=== PATIENT | male | born 1940 | race Caucasian/White ===

== ENCOUNTER → 2016-04-30 | Outpatient (CLI) | payer BC ==
[~2016-04-30] MED LIST: ASPIRIN 32325 MG/TAB PO; ASPIRIN 81M81 MG/TA2 PO; BRILINTA90 MG PO; CADUET 10 MG-801 TAB PO; GLUCOPHAGE500 MG/TAB PO; METFORMIN500 MG PO; NITROSTAT0.6 MG SL; TOPROL XL 25MG25 MG PO; URICALM PO; VOGELXO TOP
== END ==
LOC: COL.RAD 11:21
DX: R22.1 Localized swelling, mass and lump, neck (principal)

== ENCOUNTER 2016-12-04 13:13 | Day surgery (SDC) | payer BC ==
[~2016-12-04] VITALS: Ht 177.8 cm; Wt 103.8 kg
[2016-12-04 14:02] VITALS: BP 147/83; PULSE 62; TEMP 97.6
[2016-12-04] MEDS ORDERED: ASPIRIN 81M81 MG/TA2 PO (14:43)
[2016-12-04] MEDS ORDERED: TOPROL XL 25MG25 MG PO (14:44)
[2016-12-04] MEDS ORDERED: GLUCOPHAGE500 MG/TAB PO (14:45)
[2016-12-04] MEDS ORDERED: CADUET 10 MG-801 TAB PO (14:45)
[2016-12-04] MEDS ORDERED: PLAVIX 75MG TAB75 MG PO (14:47)
[2016-12-04] MEDS ORDERED: NITROSTAT0.6 MG SL (14:48)
[2016-12-04 16:05] VITALS: TEMP 98.2
[2016-12-04 16:15] VITALS: BP 129/75; PULSE 51
[2016-12-04 16:30] VITALS: BP 150/90; PULSE 47
[2016-12-04 16:45] VITALS: BP 151/88; PULSE 52
[2016-12-04 17:00] VITALS: BP 132/86; PULSE 52
== END 2016-12-04 17:33 | disposition home or self-care (01) ==
LOC: SDCO 13:13
DX: N21.0 Calculus in bladder (principal); F32.9 Major depressive disorder, single episode, unspecified; N40.1 Benign prostatic hyperplasia with lower urinary tract symptoms; I25.10 Atherosclerotic heart disease of native coronary artery without angina pectoris; K21.9 Gastro-esophageal reflux disease without esophagitis; E78.00 Pure hypercholesterolemia, unspecified; Z95.818 Presence of other cardiac implants and grafts; Z95.5 Presence of coronary angioplasty implant and graft; Z79.84 Long term (current) use of oral hypoglycemic drugs; Z82.49 Family history of ischemic heart disease and other diseases of the circulatory system
CPT/HCPCS: J0690; J2405; J2704; J3010; J7030

== ENCOUNTER 2017-04-19 16:54 | Inpatient (IN) | payer MEDICARE, BC ==
[~2017-04-19] VITALS: Ht 177.8 cm; Wt 102.5 kg
[~2017-04-19 16:54] MED LIST changes: +PLAVIX 75MG TAB75 MG PO
[2017-04-19] MEDS ORDERED: CADUET 10 MG-801 TAB PO (17:14)
[2017-04-19] MEDS ORDERED: NITROSTAT0.4 MG/TAB SL (17:19)
[2017-04-19 17:59] LABS: BASO % 0.4 % (0.0-2.0); EOS # 0.1 (0.0-0.7); EOS % 1.4 % (0-4.0); GRAN # 2.7 (1.4-6.5); GRAN % 54.9 % (42.2-75.2); HEMATOCRIT 42.4 % (42.0-52.0); LYMPH # 1.8 (1.2-3.4); LYMPH % 35.5 % (20.0-51.0); MEAN CELL VOLUME 87 fl (80.0-100.0); MEAN CORPUSCULAR HEMOGLOBIN 29 pg (27.0-31.0); MEAN CORPUSCULAR HGB CONC 33 g/dl (33.0-37.0); MEAN PLATELET VOLUME 10.9 fl (7.4-10.4); MONO # 0.4 (0.1-0.6); MONO % 7.6 % (1.7-9.3); PLATELET COUNT 165 K/mm3 (130-400); RED BLOOD COUNT 4.88 M/mm3 (4.20-5.60); REDCELL DISTRIBUTION WIDTH-CV 13.1 % (11.5-14.5)
[2017-04-19 18:06] LABS: ALANINE AMINOTRANSFERASE 53 U/L (21-72); ALBUMIN 4.2 gm/dL (3.5-5.0); ALKALINE PHOSPHATASE 65 U/L (50-136); ANION GAP 11 mmol/L (7-16); AST,SGOT 29 U/L (15-37); BILIRUBIN,TOTAL 0.5 mg/dL (0.0-1.0); BLOOD UREA NITROGEN 19 mg/dL (9-20); CALCIUM 8.8 mg/dL (8.4-10.2); CARBON DIOXIDE 24 mmol/L (22-30); CHLORIDE 101 mmol/L (98-107); CREATININE, serum 0.84 mg/dL (0.66-1.25); GLUCOSE 364 mg/dL (74-106); POTASSIUM 3.9 mmol/L (3.4-5.0); SODIUM 136 mmol/L (137-145); TOTAL PROTEIN 7.4 gm/dL (6.4-8.2)
[2017-04-19 18:15] LABS: PROTHROMBIN TIME 11.9 SECONDS (9.7-12.8)
[2017-04-19 18:17] LABS: PARTIAL THROMBOPLASTIN TIME 29.1 SECONDS (26.0-37.0)
[2017-04-19 18:26] LABS: TROPONIN-I < 0.012 ng/mL (0.000-0.034)
[2017-04-19 23:39] VITALS: BP 159/86; PULSE 64; TEMP 98.1
[2017-04-20 01:33] VITALS: BP 159/87; PULSE 63; TEMP 97.9
[2017-04-20 04:54] VITALS: BP 149/88; PULSE 59; TEMP 97.9
[2017-04-20 07:02] LABS: BASO % 0.5 % (0.0-2.0); EOS # 0.1 (0.0-0.7); EOS % 1.3 % (0-4.0); GRAN # 3.2 (1.4-6.5); GRAN % 51.2 % (42.2-75.2); HEMATOCRIT 41.9 % (42.0-52.0); LYMPH # 2.4 (1.2-3.4); LYMPH % 38.4 % (20.0-51.0); MEAN CELL VOLUME 86 fl (80.0-100.0); MEAN CORPUSCULAR HEMOGLOBIN 29 pg (27.0-31.0); MEAN CORPUSCULAR HGB CONC 33 g/dl (33.0-37.0); MEAN PLATELET VOLUME 10.9 fl (7.4-10.4); MONO # 0.5 (0.1-0.6); MONO % 8.3 % (1.7-9.3); PLATELET COUNT 166 K/mm3 (130-400); RED BLOOD COUNT 4.88 M/mm3 (4.20-5.60); REDCELL DISTRIBUTION WIDTH-CV 13.3 % (11.5-14.5)
[2017-04-20 07:17] LABS: CALCIUM 8.6 mg/dL (8.4-10.2); CHOLESTEROL RISK RATIO 4.3; CREATININE, serum 0.74 mg/dL (0.66-1.25); POTASSIUM 3.6 mmol/L (3.4-5.0)
[2017-04-20 10:22] VITALS: BP 136/79; PULSE 62; TEMP 97.5
[2017-04-20 14:43] VITALS: BP 138/78; PULSE 58; TEMP 97.4
[2017-04-20 17:22] VITALS: BP 145/82; PULSE 60; TEMP 98.3
[2017-04-20 21:51] VITALS: BP 141/92; PULSE 57; TEMP 98.2
[2017-04-21] VITALS (302 sets, daily range): BP systolic 115–156; BP diastolic 76–110; PULSE 58–79; TEMP 97.9–98.4; O2SAT 89–100
[2017-04-21 07:15] LABS: HEMATOCRIT 45.1 % (42.0-52.0); HEMOGLOBIN 15.2 g/dl (13.5-18.0); MEAN CELL VOLUME 86 fl (80.0-100.0); MEAN CORPUSCULAR HEMOGLOBIN 29 pg (27.0-31.0); MEAN CORPUSCULAR HGB CONC 34 g/dl (33.0-37.0); MEAN PLATELET VOLUME 11.1 fl (7.4-10.4); PLATELET COUNT 189 K/mm3 (130-400); RED BLOOD COUNT 5.23 M/mm3 (4.20-5.60); REDCELL DISTRIBUTION WIDTH-CV 13.2 % (11.5-14.5)
[2017-04-21 07:32] LABS: CREATININE, serum 0.77 mg/dL (0.66-1.25); POTASSIUM 3.5 mmol/L (3.4-5.0)
[2017-04-21 07:36] LABS: INR 1.1 (0.8-3.0); PROTHROMBIN TIME 12.5 SECONDS (9.7-12.8)
[2017-04-21 07:39] LABS: PARTIAL THROMBOPLASTIN TIME 31.2 SECONDS (26.0-37.0)
[2017-04-22] VITALS (299 sets, daily range): BP systolic 119–139; BP diastolic 66–80; PULSE 60–73; TEMP 90–98.8; O2SAT 69–96
[2017-04-22 03:56] LABS: BASO % 0.2 % (0.0-2.0); EOS # 0.1 (0.0-0.7); EOS % 0.6 % (0-4.0); GRAN # 5.4 (1.4-6.5); GRAN % 65.8 % (42.2-75.2); HEMATOCRIT 42.2 % (42.0-52.0); HEMOGLOBIN 14.2 g/dl (13.5-18.0); LYMPH # 2.1 (1.2-3.4); LYMPH % 24.9 % (20.0-51.0); MEAN CELL VOLUME 85 fl (80.0-100.0); MEAN CORPUSCULAR HEMOGLOBIN 29 pg (27.0-31.0); MEAN CORPUSCULAR HGB CONC 34 g/dl (33.0-37.0); MEAN PLATELET VOLUME 10.5 fl (7.4-10.4); MONO # 0.7 (0.1-0.6); MONO % 8.3 % (1.7-9.3); PLATELET COUNT 153 K/mm3 (130-400); RED BLOOD COUNT 4.95 M/mm3 (4.20-5.60); REDCELL DISTRIBUTION WIDTH-CV 13.2 % (11.5-14.5)
[2017-04-22 04:06] LABS: CALCIUM 8.8 mg/dL (8.4-10.2); CREATININE, serum 0.79 mg/dL (0.66-1.25); POTASSIUM 3.5 mmol/L (3.4-5.0)
[2017-04-22] MEDS ORDERED: PRINIVIL5 MG PO (09:24)
[2017-04-22] MEDS ORDERED: TOPROL XL 50MG50 MG PO (09:24)
[2017-04-22] MEDS ORDERED: GLUCOPHAGE500 MG/TAB PO (09:25)
== END 2017-04-22 11:45 | disposition home or self-care (01) | DRG 247 ==
LOC: COL.ER 16:54 → SURG 18:40 → ICU 04-21 11:18
PROVIDERS: Family Medicine; Internal Medicine Interventional Cardiology; Nurse Practitioner
PROC: B2111ZZ Fluoroscopy of Multiple Coronary Arteries using Low Osmolar Contrast (ICD-10-PCS; principal; 2017-04-21)
PROC: 027034Z Dilation of Coronary Artery, One Artery with Drug-eluting Intraluminal Device, Percutaneous Approach (ICD-10-PCS; 2017-04-21)
PROC: 02703ZZ Dilation of Coronary Artery, One Artery, Percutaneous Approach (ICD-10-PCS; 2017-04-21)
DX: I21.4 Non-ST elevation (NSTEMI) myocardial infarction (principal); I25.10 Atherosclerotic heart disease of native coronary artery without angina pectoris; I10 Essential (primary) hypertension; Z95.5 Presence of coronary angioplasty implant and graft; E11.9 Type 2 diabetes mellitus without complications
CPT/HCPCS: 99223-AI; 99231-AI; 99232-AI; 99239; C1760; C1769; C1874; C1887; C1894; G0378; J0461; J0583; J1650; J1815; J2250; J3010; J7030; Q9967

== ENCOUNTER 2020-12-26 15:57 | Inpatient (IN) | payer MEDICARE, BC ==
[~2020-12-26] VITALS: Ht 177.8 cm; Wt 94.5 kg
[2020-12-26] VITALS (74 sets, daily range): BP systolic 93–95; BP diastolic 41–65; PULSE 106–120; TEMP 95; O2SAT 91–100
[~2020-12-26 15:57] MED LIST changes: +NITROSTAT0.4 MG/TAB SL; +PRINIVIL5 MG PO; +TOPROL XL 50MG50 MG PO
[2020-12-26 16:44] LABS: BASO % 0.4 % (0.0-2.0); EOS # 0.1 K/mm3 (0.0-0.7); EOS % 1.2 % (0-4.0); GRAN # 3.3 K/mm3 (1.4-6.5); GRAN % 44.8 % (42.2-75.2); HEMATOCRIT 46.2 % (42.0-52.0); HEMOGLOBIN 15.2 g/dl (13.5-18.0); LYMPH # 3.3 K/mm3 (1.2-3.4); LYMPH % 44.7 % (20.0-51.0); MEAN CELL VOLUME 87 fl (80.0-100.0); MEAN CORPUSCULAR HEMOGLOBIN 29 pg (27.0-31.0); MEAN CORPUSCULAR HGB CONC 33 g/dl (33.0-37.0); MEAN PLATELET VOLUME 10.7 fl (7.4-10.4); MONO # 0.6 K/mm3 (0.1-0.6); MONO % 8.6 % (1.7-9.3); PLATELET COUNT 185 K/mm3 (130-400); REDCELL DISTRIBUTION WIDTH-CV 13.8 % (11.5-14.5)
[2020-12-26 16:59] LABS: ALBUMIN 4.2 gm/dL (3.4-4.8); BILIRUBIN,TOTAL 0.6 mg/dL (0.2-1.2); CALCIUM 9.6 mg/dL (8.4-10.2); CREATININE, serum 0.98 mg/dL (0.72-1.25); POTASSIUM 3.5 mmol/L (3.5-4.5); TOTAL PROTEIN 7.9 gm/dL (6.2-8.1)
[2020-12-26 17:34] LABS: TROPONIN-I 0.022 ng/mL (0.00-0.033)
--- NOTE | 2020-12-26 18:53 | NUR ---
PT INTUBATED PER ACLS PROTOCOL FOR CODE BLUE.
--- NOTE | 2020-12-26 19:22 | NUR ---
Patient transferred to bed in label maker and brought to unit. television producer, ICU nurse resident care manager rn, ER nurse, RT, label maker nurse, and this nurse assisted with bringing patient and patient equipment and IABP to unit. Patient arrived to unit at 1922. VSS. Vent settings were as followed; RR 20, peep 5, fiO2 100%. Versed gtt, dobutamine gtt, lidocaine gtt and dopamine gtt running upon arrival to unit. This RN received bedside report from label maker and CHILD CARE TEAM LEAD. This nurse completed admission assessment. Patient , June remained in ICU waiting room during assessment. This RN and JOSE Howard went and discussed plan of care and patient status with patient . After central line insertion patient brought to patient bedside. Medication reconcilliation completed. Admission info obtained from patient . was agreeable with plan of care for patient. All patient belongings sent home with .
[2020-12-26 19:56] LABS: CALCIUM 8.7 mg/dL (8.4-10.2); CREATININE, serum 1.52 mg/dL (0.72-1.25); POTASSIUM 3.1 mmol/L (3.5-4.5)
--- NOTE | 2020-12-26 20:30 | NUR ---
Versed gtt shut off to assess patients neurological status post code. This RN noted that around 2129 the patient was beginning to wake up and was able to follow commands such as hand grasp, moving feet back and forth and opening eyes. Patient appeared alert but calm and drowsy . Patient was tolerating vent and did not appear restless. JOSE Howard at bedside during sedation trial.
[2020-12-26 20:51] LABS: ARTERIAL BLD GAS O2 SATURATION 97.3 % (92-100); ARTERIAL BLD GAS TCO2 CT 17.6; ARTERIAL BLOOD GAS BASE EXCESS -10.3 (-2-2); ARTERIAL BLOOD GAS HCO3 16.4 meq/L (22-26); ARTERIAL BLOOD GAS PCO2 39.2 mmHg (35-45); ARTERIAL BLOOD GAS PO2 106.3 mmHg (80-100); ARTERIAL BLOOD GAS pH 7.24 (7.35-7.45)
--- NOTE | 2020-12-26 21:00 | NUR ---
JOSE Howard called and notified Dr. Zarate that patient was needing central line placed. Anesthesiologist arrived at bedside at 2099 and started a triple lumen central line insertion into right femoral and completed insertion at 2120. Site covered with chlorexidine prep pad and tegaderm. Minimal bleeding around site noted. Dressing is CDI. No hematomas noted. Blood return noted in all lines. Consent signed prior to procecedure by patients and head up operatorTonya.
--- NOTE | 2020-12-26 21:48 | NUR ---
Unable to assess suicide risk screening d/t patient being intubated and sedated.
--- NOTE | 2020-12-26 22:00 | NUR ---
This RN placed 16F OG. Patient tolerated procedure well. Verified placement through epigastric auscultation with lawn service manager, Tonya. No epigastric contents aspirated. OG placed at 58cm at lip.
[2020-12-26] MEDS ORDERED: ELIQUIS 2.5 PO (23:08)
[2020-12-27] VITALS (50 sets, daily range): BP systolic 101–105; BP diastolic 59–69; PULSE 111–113; TEMP 95.3; O2SAT 95–100
[2020-12-27] MEDS ORDERED: ELIQUIS 5MG PO (01:06)
[2020-12-27] MEDS ORDERED: SYNJARDY XR 121 EACH PO (01:07)
[2020-12-27] MEDS ORDERED: TOPROL XL100 MG PO (01:09)
[2020-12-27] MEDS ORDERED: ZESTRIL 20MG TA20 MG PO (01:11)
--- NOTE | 2020-12-27 01:50 | NUR ---
This RN and patient left facility via [facility] to transferring facility. Patient had versed gtt, dobutamine gtt, dopamine gtt and fentanyl gtt running. This RN continued to chart IABP strips as well as doing frequent IABP insertion site checks and distal pulse checks throughout transport.
--- NOTE | 2020-12-27 02:20 | NUR ---
This RN called report while en route to [facility] to [facility] and notified transport nurse, Ankush that patient was leaving facility and en route.
--- NOTE | 2020-12-27 07:55 | NUR ---
Fentanyl gtt initiated d/t patient becoming restless and trying to tug at lines while increasing versed at same time prior to transfer to [facility].
== END 2020-12-27 01:50 | disposition short-term general hospital (02) | DRG 270 ==
LOC: COL.ER 15:57 → ICU 18:58
PROVIDERS: Personal Emergency Response Attendant; Student in an Organized Health Care Education/Training Program; ADMIT Student in an Organized Health Care Education/Training Program
PROC: 027034Z Dilation of Coronary Artery, One Artery with Drug-eluting Intraluminal Device, Percutaneous Approach (ICD-10-PCS; principal; 2020-12-26)
PROC: 5A02210 Assistance with Cardiac Output using Balloon Pump, Continuous (ICD-10-PCS; 2020-12-26)
PROC: 4A023N7 Measurement of Cardiac Sampling and Pressure, Left Heart, Percutaneous Approach (ICD-10-PCS; 2020-12-26)
PROC: B2101ZZ Fluoroscopy of Single Coronary Artery using Low Osmolar Contrast (ICD-10-PCS; 2020-12-26)
PROC: 5A1935Z Respiratory Ventilation, Less than 24 Consecutive Hours (ICD-10-PCS; 2020-12-26)
PROC: 0BH17EZ Insertion of Endotracheal Airway into Trachea, Via Natural or Artificial Opening (ICD-10-PCS; 2020-12-26)
PROC: 02HV33Z Insertion of Infusion Device into Superior Vena Cava, Percutaneous Approach (ICD-10-PCS; 2020-12-26)
DX: I21.3 ST elevation (STEMI) myocardial infarction of unspecified site (principal); R57.0 Cardiogenic shock; J96.01 Acute respiratory failure with hypoxia; I49.01 Ventricular fibrillation; N17.9 Acute kidney failure, unspecified; E87.2 Acidosis; I25.10 Atherosclerotic heart disease of native coronary artery without angina pectoris; Z95.5 Presence of coronary angioplasty implant and graft; I10 Essential (primary) hypertension; E11.9 Type 2 diabetes mellitus without complications; Z79.82 Long term (current) use of aspirin; Z79.84 Long term (current) use of oral hypoglycemic drugs; I95.9 Hypotension, unspecified; E87.6 Hypokalemia; Z20.822 Contact with and (suspected) exposure to COVID-19
CPT/HCPCS: 99223-AI; C1725; C1769; C1874; C1887; C1894; C9600; J0171; J0282; J0690; J1250; J1265; J1644; J1815; J1940; J2001; J2250; J2270; J2405; J2704; J3010; J3101; J3480; Q9967

== ENCOUNTER 2021-05-07 13:04 | Inpatient (IN) | payer MEDICARE, BC ==
[~2021-05-07] VITALS: Ht 177.8 cm; Wt 85.6 kg
[2021-05-07] VITALS (169 sets, daily range): BP systolic 147; BP diastolic 87; PULSE 66; TEMP 97.8; O2SAT 92–100
[~2021-05-07 13:04] MED LIST changes: +ELIQUIS 2.5 PO; +ELIQUIS 5MG PO; +SYNJARDY XR 121 EACH PO; +TOPROL XL100 MG PO; +ZESTRIL 20MG TA20 MG PO
[2021-05-07 13:59] LABS: BASO % 0.3 % (0.0-2.0); EOS # 0.1 K/mm3 (0.0-0.7); EOS % 0.9 % (0.0-4.0); GRAN # 3.7 K/mm3 (1.4-6.5); GRAN % 56.6 % (42.2-75.2); HEMATOCRIT 42.7 % (42.0-52.0); HEMOGLOBIN 14.1 g/dl (13.5-18.0); LYMPH # 2.2 K/mm3 (1.2-3.4); LYMPH % 33.2 % (20.0-51.0); MEAN CELL VOLUME 86 fl (80.0-100.0); MEAN CORPUSCULAR HEMOGLOBIN 28 pg (27-31); MEAN CORPUSCULAR HGB CONC 33 g/dl (33.0-37.0); MEAN PLATELET VOLUME 11.1 fl (7.4-10.4); MONO # 0.6 K/mm3 (0.1-0.6); MONO % 8.7 % (1.7-9.3); PLATELET COUNT 184 K/mm3 (130-400); RED BLOOD COUNT 4.98 M/mm3 (4.20-5.60); REDCELL DISTRIBUTION WIDTH-CV 14.8 % (11.5-14.5)
[2021-05-07 14:26] LABS: ALBUMIN 4.4 gm/dL (3.4-4.8); BILIRUBIN,TOTAL 0.5 mg/dL (0.2-1.2); CALCIUM 9.2 mg/dL (8.4-10.2); CREATININE, serum 0.89 mg/dL (0.72-1.25); POTASSIUM 3.8 mmol/L (3.5-4.5); TOTAL PROTEIN 7.6 gm/dL (6.2-8.1)
[2021-05-07 14:33] LABS: TROPONIN-I 0.036 ng/mL (0.00-0.033)
--- NOTE | 2021-05-07 16:00 | NUR ---
PT ADMITTED FROM ED WITH BIGEMENY. PT STOOD AND TRANSFERED TO BED. PT IS SHOWING SR WITH FREQUENT PVCS, AND OTHER VSS. PT ORIENTED TO ROOM AND FLOOR. PT DENIES PAIN OR DIZZINESS. WILL CONTINUE TO MONITOR.
[2021-05-07] MEDS ORDERED: ASPIRIN 81M81 MG/TA2 PO (16:24)
[2021-05-07] MEDS ORDERED: COREG 3.123.125 MG/T PO (16:25)
[2021-05-07] MEDS ORDERED: PLAVIX 75MG TAB75 MG PO (16:25)
[2021-05-07 16:27] LABS: PARTIAL THROMBOPLASTIN TIME 32.8 SECONDS (26.0-37.0)
--- NOTE | 2021-05-07 17:28 | NUR ---
SPOKE WITH REGARDING SOTALOL AND STRESS TEST IN THE AM. STATED OK TO GIVEN TONIGHTS DOSE BUT HOLD IN THE AM.
--- NOTE | 2021-05-07 19:00 | NUR ---
RECEIVED REPORT FROM [facility] RAMIREZ. PT RESTING IN BED WATCHING TV ON RA. CALL LIGHT AND URINAL WITHIN REACH. VSS.
[2021-05-08] VITALS (195 sets, daily range): BP systolic 122–154; BP diastolic 59–89; PULSE 52–90; TEMP 97.5–99; O2SAT 90–100
[2021-05-08 06:01] LABS: CALCIUM 8.7 mg/dL (8.4-10.2); CREATININE, serum 0.79 mg/dL (0.72-1.25); POTASSIUM 4.2 mmol/L (3.5-4.5)
[2021-05-08 06:09] LABS: TROPONIN-I 0.049 ng/mL (0.00-0.033)
--- NOTE | 2021-05-08 07:00 | NUR ---
PT IS RESTING IN BED. VSS. PT NPO FOR STRESS TEST. HEPARIN ON HOLD AND XA DUE AT 0830. WILL CONTINUE TO MONITOR.
[2021-05-08 08:26] LABS: PARTIAL THROMBOPLASTIN TIME 59.7 SECONDS (26.0-37.0)
--- NOTE | 2021-05-08 08:30 | NUR ---
PT TAKEN TO [employer] FOR STRESS TEST. PT HAS HEPARIN RUNNING.
--- NOTE | 2021-05-08 13:34 | NUR ---
Makeup Instructor and SW student met with patient and his , June (ph#[phone]) to discuss discharge planning. Patient lives in [place] with his and sees Dr. Floyd for primary care. Patient obtains medications from [facility] with no difficulties. Patient advised he occasionally uses a cane and is normally independent with ADLS. Patient does not have Advance Directives and is not interested in completing DPOA-HC at this time. Patient's legal next of kin is his , June. Patient plans to return home at time of discharge. Discharge Plan: Home
--- NOTE | 2021-05-08 14:25 | NUR ---
REPORT CALLED TO JALEEL HEMPHILL. ALL QUESTIONS ANSWERED. WAITING FOR TO COME TALK WITH PT AND HIS . THEN WILL TRANSFER TO ROOM 316.
--- NOTE | 2021-05-08 15:40 | NUR ---
PT TRANSFERED UP TO ROOM 316. JALEEL HEMPHILL MET BEDSIDE.
--- NOTE | 2021-05-09 00:16 | NUR ---
PT REQUEST TO SKIP 0000 VITALS HE WOULD LIKE UNINTERRUPTED SLEEP. THIS NURSE VRBALIZES UNDERSTANDING AND INFORMS HIM OF PROTOCOL. PT VSS TREND WNL.
[2021-05-09 04:15] VITALS: BP 131/73; PULSE 56; TEMP 97.5
--- NOTE | 2021-05-09 05:49 | NUR ---
NO CLNICAL CHANGES OVERNIGHT. PT REPORTS NO CHEST PAIN, PALPITATIONS. EKG RYTHM REMAINS THE SAME. ALL NEEDS MET THIS SHIFT.
[2021-05-09 06:21] LABS: HEMATOCRIT 41.5 % (42.0-52.0); HEMOGLOBIN 13.9 g/dl (13.5-18.0); MEAN CELL VOLUME 84 fl (80.0-100.0); MEAN CORPUSCULAR HEMOGLOBIN 28 pg (27-31); MEAN CORPUSCULAR HGB CONC 34 g/dl (33.0-37.0); MEAN PLATELET VOLUME 11.4 fl (7.4-10.4); PLATELET COUNT 150 K/mm3 (130-400); RED BLOOD COUNT 4.92 M/mm3 (4.20-5.60); REDCELL DISTRIBUTION WIDTH-CV 14.8 % (11.5-14.5)
[2021-05-09 07:30] LABS: CALCIUM 8.6 mg/dL (8.4-10.2); CREATININE, serum 0.94 mg/dL (0.72-1.25); MAGNESIUM 2.1 mg/dL (1.6-2.6); POTASSIUM 4.2 mmol/L (3.5-4.5)
[2021-05-09 07:38] VITALS: BP 118/61; PULSE 60; TEMP 97.8
--- NOTE | 2021-05-09 09:45 | NUR ---
Initial visit; Patient and his thanked [employer] for looking in on him and offering empathy, visiting and offering God's blessings and keeping him in [employer]'s prayers.
[2021-05-09 12:10] VITALS: BP 123/59; PULSE 58; TEMP 97.4
[2021-05-09 16:59] VITALS: BP 132/74; PULSE 52; TEMP 97.7
--- NOTE | 2021-05-09 18:44 | NUR ---
PT HAD UNEVENTFUL NIGHT, PT WAS UPSET TODAY ABOUT HAVING TO STAY. DR. NARAYAN TALKED TO PATIENT ABOUT THE NEED FOR FINISHING HIS SOTOLOL INITIATION. NO OTHER CONCERNS, REPORT GIVEN TO WELT SOLE LAYER, RN.
[2021-05-09 19:44] VITALS: BP 137/75; PULSE 51; TEMP 97.5
[2021-05-10 04:14] VITALS: BP 124/68; PULSE 53; TEMP 97.6
--- NOTE | 2021-05-10 04:37 | NUR ---
pt had uneventufl night, denies chest pain,n,v,d,palpitations, soa. Pt eager to dsicharge. This nurse provided emotional support. All needs met this shift. call light within reach.
[2021-05-10 06:59] LABS: BASO % 0.5 % (0.0-2.0); EOS # 0.1 K/mm3 (0.0-0.7); EOS % 2.3 % (0.0-4.0); GRAN # 2.6 K/mm3 (1.4-6.5); GRAN % 43.2 % (42.2-75.2); HEMATOCRIT 41.5 % (42.0-52.0); LYMPH # 2.6 K/mm3 (1.2-3.4); MEAN CELL VOLUME 84 fl (80.0-100.0); MEAN CORPUSCULAR HEMOGLOBIN 28 pg (27-31); MEAN CORPUSCULAR HGB CONC 34 g/dl (33.0-37.0); MEAN PLATELET VOLUME 11.3 fl (7.4-10.4); MONO # 0.6 K/mm3 (0.1-0.6); MONO % 10.7 % (1.7-9.3); PLATELET COUNT 164 K/mm3 (130-400); RED BLOOD COUNT 4.95 M/mm3 (4.20-5.60); REDCELL DISTRIBUTION WIDTH-CV 14.7 % (11.5-14.5)
[2021-05-10 07:12] LABS: CALCIUM 8.5 mg/dL (8.4-10.2); CREATININE, serum 0.87 mg/dL (0.72-1.25); MAGNESIUM 2.2 mg/dL (1.6-2.6); POTASSIUM 4.2 mmol/L (3.5-4.5)
[2021-05-10 08:00] VITALS: BP 150/74; PULSE 60; TEMP 98.2
--- NOTE | 2021-05-10 08:00 | NUR ---
Patient walking the hallway and tolerating well. A&Ox4. VSS. IV CDI. Telemetry monitoring. Denies pain and discomfort. Call light within reach
[2021-05-10] MEDS ORDERED: BETAPACE 80MG80 MG PO ×2 (09:34→14:09)
[2021-05-10 10:59] VITALS: BP 137/61; PULSE 63; TEMP 98
--- NOTE | 2021-05-10 14:00 | NUR ---
Discharge paperwork reviewed with the patient. Patient verbalized an understanding to follow doctors orders. IV removed, tip intact. Patient ambulated to the patient entrance to awaiting ride.
--- NOTE | 2021-05-10 14:33 | NUR ---
The patient discharged back home with his today, 05/10. SW met with the patient and presented and read the IM form outloud to him. The patient verbalized understanding and signed the form. No additional needs at this time.
== END 2021-05-10 14:00 | disposition home or self-care (01) | DRG 310 ==
LOC: COL.ER 13:04 → ICU 15:06 → MEDICAL 05-08 15:43
PROVIDERS: Physician Assistant; Student in an Organized Health Care Education/Training Program; ADMIT Internal Medicine
DX: I49.3 Ventricular premature depolarization (principal); I48.91 Unspecified atrial fibrillation; I25.10 Atherosclerotic heart disease of native coronary artery without angina pectoris; I71.4 Abdominal aortic aneurysm, without rupture; I10 Essential (primary) hypertension; E78.5 Hyperlipidemia, unspecified; E11.9 Type 2 diabetes mellitus without complications; I34.0 Nonrheumatic mitral (valve) insufficiency; Z20.822 Contact with and (suspected) exposure to COVID-19; I25.2 Old myocardial infarction; Z95.5 Presence of coronary angioplasty implant and graft; Z87.442 Personal history of urinary calculi
CPT/HCPCS: 99223-AI; 99231-AI; 99232-AI; 99239; A9500; J1644; J1815; J2405; J2785; J3480

== ENCOUNTER 2023-04-04 12:32 | Day surgery (SDC) | payer BC ==
[~2023-04-04] VITALS: Ht 177.8 cm; Wt 93.1 kg
[~2023-04-04 12:32] MED LIST changes: +BETAPACE 80MG80 MG PO; +COREG 3.123.125 MG/T PO; +JANUVIA 100MG100 MG PO; +LEQVIO284 MG/1.5 SQ; +LR 1,000 ML IV SCH; +Ondansetron 4 MG/2 ML VIAL IV PRN; +PACERONE400 MG PO; +ROXICODONE 55 MG/TAB PO; +XANAX 0.5MG0.5 MG PO
[2023-04-04] MEDS ORDERED: Lidocaine PF 2% (20 MG/ML) 5 ML VIAL ONE (13:14)
--- NOTE | 2023-04-04 13:49 | NUR ---
PATIENT IS VERY POOR HISTORIAN WITH HISTORY AND MEDICATIONS. STATES HIS AUTOMOTIVE ACCESSORY INSTALLER TOLD HIM HE COULD NOT STOP BLOOD THINNERS. DID NOT TAKE ANY TODAY.
[2023-04-04 13:55] VITALS: BP 143/89; PULSE 62; TEMP 97.3
[2023-04-04] MEDS ORDERED: PACERONE200 MG PO (14:02)
[2023-04-04] MEDS ORDERED: PRIL40 PO (14:10)
[2023-04-04] MEDS ORDERED: XIFAXAN550 MG PO (14:12)
[2023-04-04 14:18] VITALS: BP 132/81; PULSE 63; TEMP 96.8
[2023-04-04 14:30] VITALS: BP 139/81; PULSE 64
[2023-04-04 14:45] VITALS: BP 138/78; PULSE 64
--- NOTE | 2023-04-04 15:00 | NUR ---
1418- PATIENT RETURNS TO [facility] VIA [facility]ART. PT AWAKE AND ALERT. RESPIRATIONS UNLABORED. AMBULATED TO RECLINER CHAIR WITH 2:1 SBA. PT DENIES NAUSEA OR ABDOMINAL PAIN. HOOKED UP TO MONITOR AND VS OBTAINED. CALL LIGHT AT SIDE AND PRESENT. 1428- PATIENT TOLERATING ORANGE JUICE AND MUFFIN WITHOUT NAUSEA OR DIFFICULTY SWALLOWING. 1433- D/C INSTRUCTIONS REVIEWED WITH PATIENT. PT VERBALIZED UNDERSTANDING AND A COPY OF INSTRUCTIONS PROVIDED IN D/C FOLDER. 1440- PATIENT DRESSES SELF. 1455- DR. TELLEZ IN ROOM SPEAKING WITH PATIENT. 1500- PATIENT DISCHARGED FROM UNIT VIA W/C TO A PERSONAL VEHICLE. PT LEFT HOSPITAL IN STABLE CONDITION.
== END 2023-04-04 15:00 | disposition home or self-care (01) ==
LOC: SDCO 12:32
DX: K21.9 Gastro-esophageal reflux disease without esophagitis (principal)
CPT/HCPCS: J2704; J7120